=== PATIENT | female | born 1940 | race Caucasian/White ===

== ENCOUNTER 2018-03-12 05:40 | Day surgery (SDC) | payer OTHER ==
[~2018-03-12] VITALS: Ht 157.5 cm; Wt 63.5 kg
[~2018-03-12 05:40] MED LIST: BENADRYL25 MG PO; DIFFERIN TP; IPRATROPIUM BRO15 ML BOTH NARES; LISINOPRIL20 MG PO; LO-DOSE ASPIRIN81 M2 PO; PRAVACHOL40 MG PO; SUDOGEST PE10 MG PO; TRAZODONE HCL50 MG PO; TYLENOL WITH C1 EACH PO; VITAMIN D2000 UNIT PO
[2018-03-12 07:07] VITALS: BP 142/81
[2018-03-12 13:55] VITALS: BP 180/84
[2018-03-12 15:00] VITALS: BP 148/64
== END 2018-03-12 15:10 | disposition home or self-care (01) ==
LOC: SDC 05:40 → NUC 05:40 → SDC 07:00
PROC: 0HBT0ZZ Excision of Right Breast, Open Approach (ICD-10-PCS; principal; 2018-03-12)
PROC: 07B50ZX Excision of Right Axillary Lymphatic, Open Approach, Diagnostic (ICD-10-PCS; principal; 2018-03-12)
DX: C50.611 Malignant neoplasm of axillary tail of right female breast (principal); Z17.0 Estrogen receptor positive status [ER+]; Z80.3 Family history of malignant neoplasm of breast; I10 Essential (primary) hypertension; K21.9 Gastro-esophageal reflux disease without esophagitis; Z79.82 Long term (current) use of aspirin; Z87.891 Personal history of nicotine dependence
CPT/HCPCS: 78195; 78999; 88305; 88307; 88342 TC; A9541; J0690; J1100; J1170; J2405; J3010; S0020